=== PATIENT | female | born 1950 | race Caucasian/White ===

== ENCOUNTER → 2021-01-07 15:17 | Outpatient (CLI) | payer MEDICARE, OTHER, SELFPAY ==
[2021-01-07 15:44] LABS: COVID19 -Nasal RAPID Negative (Negative)
== END ==
PROVIDERS: PCP Internal Medicine; Visit Provider Obstetrics & Gynecology
DX: Z01.812 Encounter for preprocedural laboratory examination (principal); Z20.822 Contact with and (suspected) exposure to COVID-19
CPT/HCPCS: 87635

== ENCOUNTER 2021-01-08 07:11 | Day surgery (SDC) | payer MEDICARE, OTHER, SELFPAY ==
[2020-12-30 12:19] VITALS: BMI 47.2
[2021-01-08] VITALS (9 sets, daily range): BP systolic 109–139; BP diastolic 69–85; PULSE 16–95; RESP 16–18; TEMP 36.3–36.6; O2SAT 89–98; BMI 47.2
--- NOTE | 2021-01-08 | PATH_ITS ---
[facility] Accession Number: [id number] . 01 Material submitted: . PART A: endometrium - ENDOMETRIAL CURETTINGS PART B: endocervix - ENDOCERVICAL CURETTINGS . 01 Clinical history: . SDC . 02 Diagnosis: A. Endometrial Curettings: Avulsed portions of acutely inflamed squamous mucosa; negative for squamous dysplasia or malignancy. Portions of endometrium with features of cystic atrophy; negative for glandular hyperplasia, cytologic atypia, or malignancy. Some endometrial fragments demonstrate prominent vessels, suggestive of polyp, if clinical and imaging studies are concordant. . B. Endocervical Curettings: Inflamed portions of endocervical polyp; negative for glandular dysplasia or malignancy. V 01/12/2021 1522 Local . 02 Electronically signed: . Evie Presley MD, Pathologist NPI- [id number] . 01 Gross description: . Part A: ENDOMETRIAL CURETTINGS: Received in formalin are multiple fragment(s) of ellsworth, soft tissue measuring 1.5 x 1.0 x 0.2 cm in aggregate submitted entirely in 1 cassette(s) Part B: ENDOCERVICAL CURETTINGS: Received in formalin are minute fragment(s) of ellsworth, soft tissue measuring 1.0 x 0.5 x 0.2 cm in aggregate submitted entirely in 1 cassette(s) /QBJ 01/09/2021 0617 Local . 02 Pathologist provided ICD-10: N85.00, N84.1 . 02 CPT . 237931, 270458 Performed at: 01 [facility] [address], [place], [place] [id number] MD Yazan Gann MD Phone: [phone] Performed at: 02 [facility] [id number] [place] [id number] MD Chayo Anaya MD Phone: [phone]
[2021-01-08] MEDS: LACTATED RINGERS 1,000 ML 100 ML IV (07:46)
--- NOTE | 2021-01-08 08:14 | P.HP_ITS ---
History of Present Illness History of Present Illness Date Patient Seen: 01/08/21 Time Patient Seen: 08:15 Chief complaint: SDC Narrative: Patient is a 70-year-old 4 para 4 postmenopausal bleeding and an endocervical/endometrial polyp. She is here for a D&C hysteroscopy and polypectomy. Patient History Medical History (Updated 12/30/20 @ 12:48 by Millicent Carlson RN) Acquired hypothyroidism (~1994) Allergies (~1969) Asthma Cataract Cataracts, bilateral (~2013) Chicken pox Colon polyps (~2017) Essential hypertension Frequent UTI GERD (gastroesophageal reflux disease) (~2009) Headache Heavy menstrual period (~1999) Hemorrhoid (~2014) Hiatal hernia History of colon polyps Hypercholesterolemia Hypothyroid Insomnia Measles Obesity JOANIE on CPAP Peripheral neuropathy Pernicious anemia RLS (restless legs syndrome) Seasonal allergic conjunctivitis Seasonal allergies Sleep related leg cramps Vitamin B12 deficiency 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 Wheezing Surgical History (Updated 11/23/20 @ 21:34 by Treasure Levin) H/O carpal tunnel repair (~2009) History of section History of femoral hernia repair S/P tonsillectomy and adenoidectomy Status post right knee replacement [place] teeth extracted Family & Social History Social History: household members spouse Tobacco & Substance use: Smoking Status Never smoker alcohol intake never Substance Use Type does not use Meds Home Medications and Allergies Home Medications Medication Instructions Recorded Confirmed Type [LEG CRAMPS PM] 2 tab PO HS #0 08/18/16 06/20/19 History [RESTFULL LEGS] 2 tab SUBLINGUAL HS #0 08/18/16 06/20/19 History levothyroxine [Synthroid] 0.2 mg PO QDAY #0 08/18/16 01/08/21 History meloxicam [Mobic] 7.5 mg PO AMCC #0 08/18/16 01/08/21 History albuterol 90 mcg/actuation aerosol 90 mcg INHALATION PRN PRN 06/20/19 01/08/21 History inhaler ascorbic acid (vitamin C) 250 mg 250 mg PO DAILY 06/20/19 01/08/21 History tablet calcium carb-D3-mag [id number] 3 tab PO DAILY 06/20/19 11/18/20 History docusate sodium 100 mg capsule 100 mg PO PRN PRN 06/20/19 01/08/21 History ferrous sulfate 325 mg (65 mg 325 mg PO DAILY 06/20/19 01/08/21 History iron) tablet glucos sul [id number] 1 tab PO DAILY 06/20/19 11/18/20 History melatonin 5 mg capsule 5 mg PO DAILY cap 06/20/19 01/08/21 History pantoprazole 40 mg tablet,delayed 40 mg PO DAILY 06/20/19 01/08/21 History release oxycodone-acetaminophen 5 mg-325 1 tab PO BEDTIME tab 11/18/20 01/08/21 History mg tablet rosuvastatin 10 mg tablet 10 mg PO DAILY 11/18/20 01/08/21 History cholecalciferol (vitamin D3) 15 mcg PO BEDTIME 12/30/20 01/08/21 History [Vitamin D3] cyanocobalamin (vitamin B-12) 2,500 mcg PO DAILY 12/30/20 01/08/21 History diclofenac sodium 1 g TOPICAL SEEINSTR 12/30/20 12/30/20 History diphenhydramine HCl 50 mg PO BEDTIME 12/30/20 01/08/21 History fexofenadine 180 mg PO DAILY 12/30/20 01/08/21 History inulin [Fiber Gummies] 1 g PO DAILY 12/30/20 01/08/21 History Allergies Allergy/AdvReac Type Severity Reaction Status Date / Time gabapentin [GABAPENTIN] Allergy Mild FACIAL RASH Unverified 12/30/20 12:45 Exam Vital Signs (past 8 hours): - 01/08/21 07:47 Temperature 97.8 F Pulse Rate 95 H Respiratory Rate 16 Blood Pressure 139/79 Pulse Oximetry 98 Oxygen Delivery Method Room Air Oxygen Flow Rate 0 Narrative Exam Narrative: HEENT: No thyromegaly, no anterior cervical or supraclavicular lymphadenopathy. Lungs:Clear to auscultation bilaterally, no wheezes. Cardiovascular: Regular rate and rhythm, no murmurs, rubs, or gallops. Abdomen: Well-healed scars. No hepatosplenomegaly. No masses palpable. External genitalia: Normal Vagina: Normal Cervix: Normal Bimanual exam: 8 Week size uterus. Mobile. Assessment & Plan Assessment & Plan narrative: Assessment: 70-year-old 4 para 4 with postmenopausal bleeding, thickened endometrial lining, and an endocervical/endometrial polyp Plan: D&C hysteroscopy with polypectomy The risks, benefits, and alternatives to the procedure were explained to the patient. The risks including bleeding, infection, and uterine perforation. She understands these risks and agrees to proceed. A full par Q was held and consent form was signed. COVID-19 COVID-19 status: Negative Result date/Date tested (Pos, Neg/Pending): 01/07/21 Time Spent With Patient Time with patient: less than 15 minutes
--- NOTE | 2021-01-08 08:17 | PM.PREOP ---
Pre-operative Note COVID-19 COVID-19 status: Negative Result date/Date tested (Pos, Neg/Pending): 01/07/21 Interval Note History & Physical reviewed/Exam performed by Physician: Yes Changes to H&P: No H&P completed within 30 days and has changed as indicated here:: 01/08/21
--- NOTE | 2021-01-08 09:08 | P.OP_ITS ---
Operative Date/Time/Diagnoses Date of procedure: 01/08/21 Time of procedure: 09:08 Pre-op diagnosis: Postmenopausal bleeding Endometrial hyperplasia Endocervical versus endometrial polyp Post-op diagnosis: same Procedure & Clinicians Procedure: Procedures Operation Date: 01/08/21 08:15 <No data on this case meets the specified criteria> Indications: Postmenopausal bleeding Endometrial hyperplasia Endocervical versus endometrial polyps Surgeon: Sarah Joel Anesthesia Type: General (LMA) Operative Notes Findings: Eight week size anteverted uterus Small polyps in the endocervical canal Fallopian tube ostia not observed Closure Type: not applicable Specimen(s): endometrial curettings and other (Endocervical curetting) Estimated blood loss (mL): 10 Blood products transfused: none Procedure in detail: After informed consent was obtained, patient was taken to the operating room where she was placed in the dorsal supine position. After adequate LMA general anesthesia was achieved, she was placed in the dorsal lithotomy position, and prepped and draped in the usual sterile fashion. A time-out was performed. A bivalve speculum was placed into the vagina and the anterior lip of the cervix was grasped with a single-tooth tenaculum. The ce rvical os was sequentially dilated to the # 9 Hegar dilator. The hysteroscope passed easily into the endocervical cavity and was advanced into the endometrium. There were some clots. An attempt was made to flush them with some pressure on the fluid. Never was really able to see well into the endometrium. The fallopian tube ostia were not observed. The hysteroscope was removed. Polyp forceps were used and sharp curettage to obtain tissue from the endometrium. Sharp curettage and polyp forceps were used in the Endo cervical canal to remove the polyps. The instruments were removed from the uterus and cervix. The single-tooth tenaculum was removed from the anterior lip of the cervix. The bivalve speculum was removed from the vagina. Sponge, lap, and instrument counts were correct x2. The patient tolerated the procedure well, and was taken to PACU in stable condition. Complications: none Post-operative Condition: stable Disposition: PACU Plan for aftercare: Home after recovery
--- NOTE | 2021-01-08 10:27 | SUR.OPER ---
Lithotomy on padded OR bed, head on pillow, arms secured on padded arm boards at <90 degrees abduction. Legs secured in padded yellow fins stirrups.
== END 2021-01-08 10:16 | disposition home or self-care (01) ==
PROVIDERS: PCP Internal Medicine; Referring Provider Internal Medicine; Visit Provider Obstetrics & Gynecology
PROC: 0UDB8ZZ Extraction of Endometrium, Via Natural or Artificial Opening Endoscopic (ICD-10-PCS; CPT 58558; principal; 2021-01-08 08:15)
DX: N84.1 Polyp of cervix uteri (principal); N95.0 Postmenopausal bleeding; N85.00 Endometrial hyperplasia, unspecified; G47.33 Obstructive sleep apnea (adult) (pediatric); E03.9 Hypothyroidism, unspecified; J45.909 Unspecified asthma, uncomplicated; I10 Essential (primary) hypertension; K21.9 Gastro-esophageal reflux disease without esophagitis; E78.00 Pure hypercholesterolemia, unspecified
CPT/HCPCS: 58558; J1100; J1885; J2250; J2405; J2704; J3010

== ENCOUNTER → 2021-01-16 09:01 | Outpatient (CLI) | payer MEDICARE, OTHER, SELFPAY ==
--- NOTE | 2021-01-16 09:03 | DI.US.S_ITS ---
PROCEDURE: US PELVIC COMPLETE INDICATIONS: Post Op bleeding and elevated temp TECHNIQUE: Real-time scanning was performed of the pelvic organs, with image documentation. Additional endovaginal scanning was necessary due to incomplete visualization of the adnexal and endometrial structures by transabdominal scanning. COMPARISON: None. FINDINGS: Uterus: Uterus is enlarged in size at 10.4 x 6.5 x 6.7 cm. The endometrium measures 33 mm in combined thickness. Endometrial contents demonstrate no definite vascularity. No definite uterine hyperemia. Incidental left anterior subserosal uterine fibroid measuring 2.7 x 1.9 x 2.1 cm. Ovaries: Ovaries not well visualized. Other: No pathologic free abdominal or pelvic fluid. IMPRESSION: Enlarged heterogeneous appearance of the uterus, with prominent endometrial contents. Findings could represent large amount of blood products although cannot exclude endometritis in the appropriate clinical setting. Findings provided to Dr. Joel by the lab support technician at the time of the study, the patient was sent to Dr. Joel's office for further workup and treatment. Dictated by: Anshul Nicole M.D. on 01/16/2021 at 10:48 Approved by: Anshul Nicole M.D. on 01/16/2021 at 10:51
[2021-01-16 10:05] LABS: Add Manual Diff / Slide Review NO; Basophils Absolute Auto 0 /uL (0-100); Basophils Percent Auto 0.7 % (0-2); Eosinophils Absolute Auto 200 /uL (0-450); Eosinophils Percent Auto 2.7 % (2-4); Hemoglobin 13.5 g/dL (12.0-16.0); Lymphocytes Absolute Auto 1300 /uL (1100-4500); Lymphocytes Percent Auto 21.8 % (25-40); Mean Corpuscular HGB Conc 34.7 % (30-36); Mean Corpuscular Hemoglobin 30.5 PG (26-34); Mean Corpuscular Volume 87.9 fL (80-100); Monocytes Absolute Auto 800 /uL (0-900); Monocytes Percent Auto 13.7 % (3-14); Neutrophils Absolute Auto 3700 /uL (1500-7000); Neutrophils Percent Auto 61.1 % (50-75); Platelet Count 227 X10^3/uL (150-400); Red Blood Cell Count 4.43 X10^6/uL (4.0-5.2); Red Cell Distribution Width 12.8 % (11.6-14.8)
[2021-01-16 11:06] LABS: Ferritin 605 ng/mL (11-264)
== END ==
PROVIDERS: Family Medicine Sleep Medicine; PCP Internal Medicine; Referring Provider Obstetrics & Gynecology; Visit Provider Obstetrics & Gynecology
DX: N99.820 Postprocedural hemorrhage of a genitourinary system organ or structure following a genitourinary system procedure; R50.9 Fever, unspecified; G25.81 Restless legs syndrome
CPT/HCPCS: 36415; 76830; 76856; 82728; 85025

== ENCOUNTER → 2021-03-26 09:25 | Outpatient (CLI) | payer MEDICARE, OTHER, SELFPAY ==
--- NOTE | 2021-03-26 09:27 | DI.US.S_ITS ---
PROCEDURE: US PELVIC COMPLETE INDICATIONS: EVAL SPOTTING S/P D C. TECHNIQUE: Real-time scanning was performed of the pelvic organs, with image documentation. Additional endovaginal scanning was necessary due to incomplete visualization of the adnexal and endometrial structures by transabdominal scanning. COMPARISON: None. FINDINGS: Uterus: The uterine body measures 7.2 x 8.1 x 10.5 centimeters. There is a left anterior subserosal uterine fibroid which is partially visualized. This measures at least 2.0 x 2.1 centimeters. The 3rd orthogonal measurement could not be obtained (previously 2.7 centimeters). This has likely slightly increased in size. No additional uterine mass identified. The endometrial stripe complex is markedly thickened measuring approximately 3.7 centimeters. There is and irregular and hypervascular appearance of the endometrium. Ovaries: Neither ovary is identified. Other: No pathologic free abdominal or pelvic fluid. IMPRESSION: Technically limited exam with nonvisualization of both ovaries. Enlarged uterus containing a left anterior subserosal fibroid which has probably slightly increased in size although this is not entirely visualized on the current study. Thickened and irregular appearing endometrium. Correlate with menopausal status and any recent procedures or hormone replacement. Dictated by: Juma Coburn M.D. on 03/31/2021 at 16:57 Approved by: Juma Coburn M.D. on 03/31/2021 at 16:59
== END ==
PROVIDERS: PCP Internal Medicine; Referring Provider Obstetrics & Gynecology; Visit Provider Obstetrics & Gynecology
DX: N95.0 Postmenopausal bleeding (principal); D25.2 Subserosal leiomyoma of uterus; R93.89 Abnormal findings on diagnostic imaging of other specified body structures; N85.2 Hypertrophy of uterus; Z98.890 Other specified postprocedural states
CPT/HCPCS: 76830; 76856; 99213

== ENCOUNTER → 2021-05-12 15:17 | Outpatient (CLI) | payer MEDICARE, OTHER, SELFPAY ==
[2021-05-12 16:14] LABS: COVID19 -Nasal RAPID Negative (Negative)
== END ==
PROVIDERS: PCP Internal Medicine; Visit Provider Obstetrics & Gynecology
DX: Z01.812 Encounter for preprocedural laboratory examination (principal); Z20.822 Contact with and (suspected) exposure to COVID-19
CPT/HCPCS: 87635

== ENCOUNTER 2021-05-14 08:42 | Day surgery (SDC) | payer MEDICARE, OTHER, SELFPAY ==
[2021-05-07 15:06] VITALS: BMI 45.8
[2021-05-14] VITALS (14 sets, daily range): BP systolic 114–152; BP diastolic 69–89; PULSE 57–107; RESP 14–20; TEMP 36.3–37; O2SAT 92–100; BMI 45.8
--- NOTE | 2021-05-14 | PATH_ITS ---
[facility] Accession Number: [id number] . 01 Material submitted: . uterus - UTERUS, BILATERAL FALLOPIAN TUBES AND BILATERAL OVARIES . 02 Diagnosis: Uterus, Bilateral Fallopian Tubes and Bilateral Ovaries, Laparoscopic Supracervical Hysterctomy with Bilateral Salpingo-oophorectomy (Morcellated Specimen, Weight 261 grams): . 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 Please see Cancer Case Summary. . . CANCER CASE SUMMARY . Procedure: Laparoscopic supracervical hysterectomy with bilateral salingo-oophorectomy. Hysterectomy type: Laparoscopic. Specimen integrity: Disrupted / morcellated. . Tumor Tumor site: Favor endometrium (disrupted specimen). Tumor size: At least 6.5 cm. Greatest dimension in centimeters: 6.5 cm. Histologic type: Serous carcinoma; (pattern of high grade endometrioid carcinoma constitutes approximately 20% of apparent tumor). Histologic grade: FIGO grade 3. Myometrial invasion: Present. Depth of myometrial invasion: Cannot be determined (disrupted specimen). Myometrial thickness: At least 1.5 cm. Precentage of myometrial invasion: Cannot be determined (disrupted specimen). Adenomyosis: Present, uninvolved by carcinoma. Uterine serosa involvement: Cannot be determined; where serosa is identified, no tumor involvement is seen. (disrupted specimen). Lower uterine segment involvement: Cannot be determined (disrupted specimen). Cervical stroma involvement: Cannot be determined (supracervical hysterectomy specimen). . Other tissue/organ involvement: Not identified (right and left ovaries, right and left fallopian tubes). . Peritoneal / ascitic fluid: Unknown. . Lymphovascular invasion: Equivocal (slide A2 with a focus equivocal for lymphovascular involvement. . . Margins Margin status: Cannot be determined. Distance from invasive carcinoma to closest margin: Cannot be determined. Margins involved by invasive carcinoma: Cannot be determined. . Regional lymph nodes Regional lymph node status: No regional lymph nodes submitted or found / not applicable. . Distant metastasis Distant sites involved: Cannot be determined (no additional tissue submitted for evaluation of distant site involvement. . . Pathologic stage classification (pTNM, AJCC 8th Edition): pT not assigned (cannot be determined based on available pathology information). pN not assigned (no nodes submitted or found). . Additional findings: Adenomyosis, atypical hyperplasia / endometrial intraepithelial neoplasia. . MMR studies pending; results will be reported as an addendum. [facility] 05/20/2021 1527 Local . 02 Comment: As part of routine quality improvement analyst, parts of this case were also reviewed by Dr. Anaya, who agrees with the interpretation. . This patient's previous endometrial biopsies were reviewed ([id number], 11/18/20; and [id number], 01/08/21) by Drs. Anaya and Porfirio and no tumor is identified upon review. . 02 Electronically signed: . Evie Presley MD, Pathologist NPI- [id number] . 01 Gross description: . The specimen is received in formalin, labeled uterus, bilateral fallopian tubes and bilateral ovaries and consists of a morcellated uterus weighing 261 grams and measuring 15.0 x 15.0 x 6.4 cm in aggregate. The endometrium is ellsworth-pink and ragged measuring 0.2 cm in thickness. The myometrium is ellsworth-pink and trabeculated with two ellsworth-white whorled leiomyoma measuring 0.6 x 0.5 x 0.5 cm and 1.5 x 1.4 x 1.0 cm, with no areas of hemorrhage, necrosis or cystic degeneration. Also received is a 2.0 x 1.1 x 0.8 cm ovary with a ellsworth smooth external surface. Sectioning reveals multiple smooth walled serous-filled cysts ranging from 0.1-0.2 cm with no papillary excrescences. The attached fallopian tube measures 4.5 cm in length by 1.0 cm in diameter and displays a ellsworth-pink smooth serosa with a 0.2 x 0.2 x 0.2 cm paratubal cyst. Sectioning reveals a ellsworth-pink mucosa and a stellate lumen measuring 0.5 cm in diameter. The other ovary measures 2.1 x 1.4 x 1.0 cm and displays a ellsworth, smooth and focally disrupted external surface. Sectioning reveals ellsworth-pink cut surfaces. The other detached fallopian tube measures 5.5 cm in length by 1.0 cm in diameter and display a ellsworth-pink to pink-purple smooth mucosa. Sectioning reveals a ellsworth-pink mucosa and a stellate lumen measuring 0.6 cm in diameter. Also received are multiple irregular ellsworth, focally yellow and focally necrotic fragments of soft tissue measuring 6.5 x 6.0 x 3.0 cm in aggregate. A cervix is not identified. Glass Smoother sections are submitted. . A1-A5: Glass Smoother uterus. A6: Ovary with attached fallopian tube, bisected and entirely submitted. A7: Attached fallopian tube with central cross sections and bisected fimbria. A8: Other ovary, bisected and entirely submitted. A9: Other fallopian tube, central cross-sections and bisected fimbria. A10-A12: Glass Smoother additional soft tissue fragments. A13: Candidate lower uterine segment. A14-A16: Remainder of fallopian tubes. A17-A25: Serosa, entirely submitted. A26-A27: Additional circulation sales representative sections of soft tissue/mass. ([id number]) /MRV 05/20/2021 1443 Local . 02 Microscopic: . An immunohistochemistry study is performed to evaluate the cells of interest. The control stains show appropriate reactivity. . RESULTS: Block A2: PAX8: Positive. WT1: Negative. P53: Diffusely, strongly positive / over-expressed. P16: Diffusely, strongly positive. MARGO: Variably positive. . The neoplastic cells are variably positive for MARGO, strongly positive for PAX8 and p16 and demonstrate over-expression of p53. They are negative for WT-1. These results favor an interpretation of endometrial adenocarcinoma with serous differentiation and mitigate against an ovarian serous tumor origin. . . CAP ENDOMETIRAL BIOMARKER REPORTING TEMPLATE: . Estrogen Receptor (ER) Status: Positive (approximately 30% of tumor nuclei). Intensity: Weak to focally moderate. Primary antibody: SP1 Progesterone Receptor (PgR) Status: Positive (approximately 30% of tumor nuclei). Intensity: Weak to focally moderate. Primary antibody: 1E2 HER2 (by immunohistochemistry): Negative (score 0). Primary antibody: 4B5 . Cold Ischemia and Fixation Times: Meets requirements in the latest version of the ASCO/CAP guidelines. Testing performed on Block Number: A2. . TECHNICAL NOTE: The scoring criteria for breast biomarkers by immunohistochemistry is based on the current ASCO/CAP guidelines (Marcus et al, Arch Pathol Lab Med 2010: 134(6): 907-922 / Nayla Fan, Arch Pathol Lab Med 2014: 138(2):241-256). Deparaffinized sections of formalin fixed tissue (along with appropriate positive controls) are incubated with the above antibody(s). Using the automated [place] stainer, tissue is incubated with the designated antibody* which is then localized by a non-biotin, dual polymer detection system. The external controls are reviewed for appropriate reactivity and found to be adequate. Results on the target cell population are indicated above. These tests have not been validated on decalcified tissue. . * This test was developed and its performance characteristics determined by [employer]. It has not been cleared or approved by the U.S. Food and Drug Administration. The FDA has determined that such clearance or approval is not necessary. This test is used for clinical purposes. It should not be regarded as investigational or for research. . 02 Pathologist provided ICD-10: C54.1 . 02 CPT . 360175, X81102, K07187, 476726, 857715, 771894 Performed at: 01 [facility] [address] [place] [id number] MD Yazan Gann MD Phone: [phone] Performed at: 02 [facility] [id number] [place] [id number] MD Chayo Anaya MD Phone: [phone]
--- NOTE | 2021-05-14 06:59 | PM.PREOP ---
Pre-operative Note COVID-19 COVID-19 status: Negative Result date/Date tested (Pos, Neg/Pending): 05/12/21 Interval Note History & Physical reviewed/Exam performed by Physician: Yes Changes to H&P: No H&P completed within 30 days and has changed as indicated here:: 05/12/21
[2021-05-14] MEDS: LACTATED RINGERS 1,000 ML 42 ML IV ×2 (09:00→11:04)
[2021-05-14] MEDS: ALBUTEROL 2.5 MG/3 ML NEB (ADULT) INH (09:36)
[2021-05-14] MEDS: CEFAZOLIN 1 GM VIAL 3 GM IV (09:50)
[2021-05-14] MEDS: BUPIVACAINE 0.25% W/ EPI 30 ML VIAL INJ (10:11)
[2021-05-14] MEDS: ROPIVACAINE 0.2% PF 2 MG/ML 10ML AMP 20 ML INJ (10:13)
--- NOTE | 2021-05-14 10:18 | SUR.OPER ---
Lithotomy on padded OR bed. [place] Pad Positioner under torso. Head on pillow, arms padded and tucked at sides. Legs secured in padded yellow fins stirrups. additional padded arm board attachment placed under left tucked arm.
--- NOTE | 2021-05-14 11:39 | PM.GYNOP.1 ---
Operative Date/Time/Diagnoses Date of procedure: 05/14/21 Time of procedure: 11:39 Pre-op diagnosis: Postmenopausal bleeding Negative D&C Post-op diagnosis: same Procedure & Clinicians Procedure: Procedures Operation Date: 05/14/21 09:45 Actual Procedure Side Surgeon p Laparoscopic Supracervical Hysterectomy w. bilateral salpingo-oophorectomy Sarah Joel MD Indications: Persistent Postmenopausal bleeding Negative D&C Fibroid uterus Surgeon: Sarah Joel Narrow Fabric Calenderer: Quinten Sterling Anesthesia Type: General and Local Operative Notes Findings: 10 week size, wide, uterus Normal tubes and ovaries Normal liver Appendix not visualized Gallbladder not visualized Closure Type: primary Specimen(s): left tube & ovary, right tube & ovary and uterus Applied: catheter (To continuous drainage) Estimated blood loss (mL): 50 Blood products transfused: none Procedure in detail: The patient was taken to the operating room where she was placed in the dorsal supine position. After adequate general endotracheal anesthesia was achieved, she was placed in the dorsal lithotomy position, and prepped and draped in the usual sterile fashion. A timeout was performed. A bivalve speculum was placed into the vagina and the anterior lip of the cervix grasped with a single-tooth tenaculum. The cervical os was sequentially dilated until the ZUMI uterine manipulator could pass easily into the endometrial cavity. The single-tooth tenaculum was removed from the anterior lip of the cervix, and the bivalve speculum was removed from the vagina. Attention was then turned to the abdomen where 6 mL of half percent Marcaine with epinephrine were injected in the umbilical fold. A 5 mm incision was made. The veress needle was placed into the peritoneal cavity, and its placement confirmed by aspiration and drop test. The veress needle was removed. A 5 mm trocar was placed without difficulty. 2 other incisions were made midway between the pubic symphysis and umbilicus after 5 mL of half percent Marcaine with epinephrine were injected. These were 5 mm incisions. Two, 5 mm trochars were placed under direct visualization. The right tube and ovary were grasped with an atraumatic grasper. Using the plasma kinetic with settings of 40 W the mesosalpinx was cauterized and cut all the way down to the cornua of the uterus. The cornua of the uterus was then grasped with an atraumatic grasper. The utero-ovarian ligaments were cauterized and cut. The round ligament and broad ligament were cauterized and cut with plasma kinetic. Hemostasis was achieved. The bladder flap was created using the plasma kinetic with cautery and cut detention across. The uterine arteries on the right side were extensively cauterized with plasma kinetic. All of this was repeated on the left side. The remainder of the bladder flap was created using the plasma kinetic, and the bladder taken down off the lower uterine segment and cervix. Using the Linaloop, the cervix was amputated from the uterus 2 cm above the uterosacral ligaments, after the ZUMI uterine manipulator was removed from the uterus and a moistened sponge stick was placed in the vagina. There was a small amount of bleeding noted from the posterior edge of the cervix, and this was cauterized for hemostasis. The endocervical canal was extensively cauterized with the PlasmaKinetic. 6 mL of half percent Marcaine with epinephrine were injected above the pubic symphysis. A 12mm incision was made. A 12 mm trocar was placed under direct visualization. An endobag was placed through the 12 mm trocar and the uterus, tubes, and ovaries were placed into the bag. The edges of the endobag were brought up through the skin after the trocar was removed. An Campbell was placed into the endobag. The uterus was morcellated in approximately 12 pieces. The tubes and ovaries were also removed from the Endobag. The Endobag with the Campbell were removed from the peritoneal cavity. The pelvis was copiously irrigated with warm normal saline. No bleeding was noted. 20 mL of 0.2% ropivacaine were placed over the pelvic pedicles. The instruments were removed from the abdomen. The CO2 was allowed to escape. The suprapubic incision was closed on the fascia with 0 Vicryl. All of the incisions were closed with 4-0 Biosyn in a subcuticular fashion. Steri strips, 2x2's and op sites were placed over the incisions. The moistened sponge stick was removed from the vagina. Sponge, lap, and instrument counts were correct x 2. The patient tolerated the procedure well, was taken to PACU in stable condition. Complications: none Post-operative Condition: stable Disposition: PACU Plan for aftercare: To acute care after recovery
[2021-05-14] MEDS: fentaNYL 100 MCG/2 ML INJ IV ×2 (12:00→12:07)
[2021-05-14] MEDS: OXYCODONE IR 5 MG TABLET PO ×2 (12:02→21:47)
[2021-05-14] MEDS: ONDANSETRON 4 MG/2 ML INJ IV (12:06)
[2021-05-14] MEDS: METOCLOPRAMIDE 10 MG/2 ML INJ IV (12:50)
[2021-05-14] MEDS: KETOROLAC 30 MG/ML VIAL IV ×2 (12:51→18:59)
[2021-05-14] MEDS: LACTATED RINGERS 1,000 ML 100 ML IV (13:00)
--- NOTE | 2021-05-14 14:28 | PC.NURSE ---
Postop Note Arrived to room 225 at 1240 from PACU. Drowsy but oriented x3 and awakens to voice promptly. Reports pain 3/10 and received toradol scheduled. Mild nausea, administered reglan per emar. Requested to sleep and was put on home CPAP. Williamson catheter in place and draining clear yellow urine. Dressings x4 to abdomen C/D/I. Call light within reach, using appropriately to make needs known. Oriented to room and to call light/bed/tv controls.
[2021-05-14] MEDS: DOCUSATE 100 MG CAPSULE 200 MG PO (21:47)
--- NOTE | 2021-05-14 22:01 | PC.NURSE ---
Vandana Shift Note: Pt with Aleven dressing x 3 lower abdomen and 1 Aleven dressing at umbilicus. Remained c/d/i. Minimal sanguinous smear onto indira pad. Changed only once during shift. Williamson with adequate straw colored output. Pain was well controlled. Toradol, Oxycodone and Tylenol staggered for pain control. Denies nausea. No issues with eating/drinking dinner. Up to chair for couple hours. Ambulated around room with standby assist. SCD's intact when in bed. Noted blood pressure heart rate elevated. Will continue to monitor. Using CPAP for sleep. No BM this shift.
[2021-05-15] MEDS: KETOROLAC 30 MG/ML VIAL IV ×2 (00:01→06:06)
[2021-05-15] MEDS: LACTATED RINGERS 1,000 ML 100 ML IV (00:15)
[2021-05-15] MEDS: OXYCODONE IR 5 MG TABLET PO ×2 (03:52→11:05)
[2021-05-15 04:02] VITALS: BP 130/67; PULSE 93; RESP 18; TEMP 36.6; O2SAT 94
[2021-05-15 05:12] LABS: Add Manual Diff / Slide Review NO; Basophils Absolute Auto 0 /uL (0-100); Basophils Percent Auto 0.4 % (0-2); Eosinophils Absolute Auto 0 /uL (0-450); Eosinophils Percent Auto 0.1 % (2-4); Hematocrit 36.1 % (36-46); Lymphocytes Absolute Auto 1200 /uL (1100-4500); Lymphocytes Percent Auto 11.4 % (25-40); Mean Corpuscular HGB Conc 33.2 % (30-36); Mean Corpuscular Hemoglobin 29.2 PG (26-34); Monocytes Absolute Auto 800 /uL (0-900); Monocytes Percent Auto 7.2 % (3-14); Neutrophils Absolute Auto 8500 /uL (1500-7000); Neutrophils Percent Auto 80.9 % (50-75); Platelet Count 216 X10^3/uL (150-400); Red Cell Distribution Width 13.3 % (11.6-14.8); White Blood Cell Count 10.5 X10^3/uL (4.5-11.0)
[2021-05-15] MEDS: LEVOTHYROXINE 100 MCG TABLET 200 MCG PO (06:07)
[2021-05-15 07:34] VITALS: BP 117/60; PULSE 76; RESP 16; TEMP 36.7; O2SAT 95
[2021-05-15] MEDS: ATORVASTATIN 20 MG TABLET PO (08:37)
[2021-05-15] MEDS: DOCUSATE 100 MG CAPSULE 200 MG PO (08:37)
[2021-05-15] MEDS: ACETAMINOPHEN 325 MG TABLET 650 MG PO (08:37)
[2021-05-15] MEDS: PANTOPRAZOLE DR 40 MG TABLET PO (08:37)
[2021-05-15] MEDS: ALBUTEROL 2.5 MG/3 ML NEB (ADULT) INH (08:40)
--- NOTE | 2021-05-15 08:57 | CM.DANOTE ---
Addendum entered by Vira Islas LPN 05/15/21 12:37: Pt voided successfully and left for home in company of her . Original Note: Discharge Planning/Care Management DCP: assessment: case received, EMR reviewed and d/c to home order noted. Checked in with SOFI Carney who noted that pt would be going home, likely this morning, after she voids. Pt is a 70 year old female who admitted yesterday for a scheduled gynecological procedure. Surgeon: Dr. Avani Joel Payer: Medicare and [employer]. Pt lives in [facility] with her spouse Colt. P: home today after successful void. Will follow prn. CM Discharge Assessment Start: 05/15/21 08:57 Freq: Status: Active Protocol: Document 05/15/21 08:57 ITV (Rec: 05/15/21 08:57 ITV [id number]) Discharge Planning Assessment Advance Directives? Yes Advance Directives on File No History Provided By Patient,Medical Record Prior Living Arrangements House Household Members spouse Is patient alert and oriented? Yes Review Status In Process Pre-Anesthesia Assessment Start: 05/07/21 15:06 Freq: Status: Active Protocol: Document 05/07/21 15:06 CAB (Rec: 05/07/21 15:13 CAB [id number]) Pre-Anesthesia Assessment Patient Information Reviewed Via Chart Review Comment COVID screen @ 05/12/21 Primary Care Provider Hemanth Hurt Seen Specialist in Last 12 Months Yes Specialist Seen Insurance Producer,Sleep specialist Primary Language Cook Islander Preferred Language Cook Islander Vascular Technologist Required No Height 162.56 cm Weight 121.109 kg Body Mass Index (BMI) 45.8 Barriers to Learning None Hx Anesthesia Reactions No Hx Family Anesthesia Reaction No Hx Malignant Hyperthermia No Hx Blood Transfusion Reaction No Anesthesia Review Requested No Environmental Health And Safety Intern No alcohol intake never Smoking Status Never smoker Substance Use Type does not use Patient is completely paralyzed or No completely immobile Hx Sleep Apnea Yes CPAP/BIPAP use prescribed and used routinely Currently Taking a Beta Geraldine No Can You Climb a Flight of Stairs Without Yes SOB Hx Pacemaker/ICD No Pacemaker Rep Required? No Cardiac Clearance Received Not Applicable Urinary Catheter Present No Hx Urinary Self Catheterization No Diabetes No Patient No Lactating No Presence of External or Internal Medical Yes: R TKA, BL CATARACTS Devices Marital Status Lives With spouse Patient Discharge Plan Description Return Home Advance Directives? Yes
--- NOTE | 2021-05-15 09:47 | PC.NURSE ---
Addendum entered by Angelika Perez R.N. 05/15/21 12:23: Patient's present for discharge. Patient wheeled out via wheelchair with aide assist. Denied further questions or concerns at that time. Original Note: Patient A/O x3, ambulating in room independently, endorses pain 1/10 with movement, PRN Tylenol administered. Abdominal dressings are CDI x 3. Patient voided 400 post Williamson removal. Abdomen soft, reports she is now passing flatus. IV removed for pending discharge. Patient tolerated. Patient given discharge instructions regarding f/u care, wound care, s/s of infection, medication and activity. Patient verbalized understanding. Denies further needs at this time.
== END 2021-05-15 12:24 | disposition home or self-care (01) ==
LOC: OR 09:16 → AC 09:16
PROVIDERS: PCP Internal Medicine; Referring Provider Obstetrics & Gynecology; Visit Provider Obstetrics & Gynecology
PROC: 0UT94ZL Resection of Uterus, Supracervical, Percutaneous Endoscopic Approach (ICD-10-PCS; CPT 58544; principal; 2021-05-14 09:45)
DX: C54.1 Malignant neoplasm of endometrium (principal); N80.0 Endometriosis of uterus; D25.1 Intramural leiomyoma of uterus; G47.33 Obstructive sleep apnea (adult) (pediatric); E66.9 Obesity, unspecified; K21.9 Gastro-esophageal reflux disease without esophagitis; J45.909 Unspecified asthma, uncomplicated; D64.9 Anemia, unspecified
CPT/HCPCS: 58544; 36415; 85025; J0690; J1885; J2405; J2704; J2765; J2795; J3010; J7613

== ENCOUNTER → 2021-05-26 13:55 | Outpatient (CLI) | payer MEDICARE, OTHER, SELFPAY ==
[2021-05-14 13:26] VITALS: BMI 45.8
[2021-05-26 17:24] LABS: COVID19 -Nasal RAPID Negative (Negative)
== END ==
PROVIDERS: PCP Internal Medicine; Visit Provider Physician Assistant
DX: Z01.812 Encounter for preprocedural laboratory examination (principal); Z20.822 Contact with and (suspected) exposure to COVID-19
CPT/HCPCS: 87635; C9803

== ENCOUNTER 2021-05-27 07:38 | Day surgery (SDC) | payer MEDICARE, OTHER, SELFPAY ==
[2021-05-14 13:26] VITALS: BMI 45.8
[2021-05-27] VITALS (7 sets, daily range): BP systolic 98–129; BP diastolic 61–81; PULSE 75–84; RESP 14–19; TEMP 36.4–37.2; O2SAT 93–97; BMI 46.0
--- NOTE | 2021-05-27 | PATH_ITS ---
[facility] Accession Number: [id number] . 01 Material submitted: . PART A: small bowel - SMALL BOWEL BIOPSY PART B: gastrointestinal site - GASTRIC . 01 Clinical history: . SDC A: R/O CELIAC B: R/O H.PYLORI . 02 Diagnosis: A. Small Bowel, Biopsy: Duodenal mucosa with no diagnostic abnormality. Negative for active inflammation, features of sprue, dysplasia, or malignancy. . B. Stomach, Biopsy: Antral mucosa with mild chronic gastritis. Negative for Helicobacter by immunohistochemistry. Negative for intestinal metaplasia. Negative for dysplasia and malignancy. . MRV 06/02/2021 1325 Local . 02 Electronically signed: . Chayo Anaya MD, Pathologist NPI- [id number] . 01 Gross description: . Part A: SMALL BOWEL BIOPSY: Received in formalin are multiple fragment(s) of ellsworth, soft tissue measuring 0.5 x 0.3 x 0.1 cm in aggregate submitted entirely in 1 cassette(s) Part B: GASTRIC: Received in formalin is 1 fragment(s) of ellsworth, soft tissue measuring 0.4 x 0.3 x 0.2 cm submitted entirely in 1 cassette(s) /LASHELL 05/28/2021 0451 Local . 02 Microscopic: . B. An immunohistochemical stain was performed to evaluate for Helicobacter organisms and is negative. The control stain showed appropriate reactivity. . * This test was developed and its performance characteristics determined by [employer]. It has not been cleared or approved by the U.S. Food and Drug Administration. The FDA has determined that such clearance or approval is not necessary. This test is used for clinical purposes. It should not be regarded as investigational or for research. . 02 Pathologist provided ICD-10: R13.10 02 CPT . 758783, 038556, [id number] Performed at: 01 [facility] [address] [id number] MD Yazan Gann MD Phone: [phone] Performed at: [facility] [address] [place], [place] [id number] MD Chayo Anaya MD Phone: [phone]
[2021-05-27] MEDS: SODIUM CHLORIDE 0.9% 1,000 ML 84 ML IV (08:29)
--- NOTE | 2021-05-27 08:51 | PM.HP.1 ---
History of Present Illness History of Present Illness Date Patient Seen: 05/27/21 Chief complaint: SDC Narrative: Multiple abdominal complaints including pain and bloating Patient History Medical History Acquired hypothyroidism (~1994) Allergies (~1969) Asthma Cataract Cataracts, bilateral (~2013) Chicken pox Colon polyps (~2017) Essential hypertension Frequent UTI GERD (gastroesophageal reflux disease) (~2009) Headache Heavy menstrual period (~1999) Hemorrhoid (~2014) Hiatal hernia History of colon polyps Hypercholesterolemia Hypothyroid Insomnia Measles Obesity JOANIE on CPAP Peripheral neuropathy Pernicious anemia RLS (restless legs syndrome) Seasonal allergic conjunctivitis Seasonal allergies Sleep related leg cramps Vitamin B12 deficiency 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 Wheezing Surgical History (Updated 05/07/21 @ 15:13 by Lolita Mejia RN) H/O carpal tunnel repair (~2009) History of section History of femoral hernia repair History of hysteroscopy (01/08/21) S/P tonsillectomy and adenoidectomy Status post right knee replacement [place] teeth extracted Family & Social History Social History: household members spouse Tobacco & Substance use: Smoking Status Never smoker alcohol intake never Substance Use Type does not use Meds Home Medications and Allergies Home Medications Medication Instructions Recorded Confirmed Type [LEG CRAMPS PM] 2 tab PO HS #0 08/18/16 05/14/21 History [RESTFULL LEGS] 2 tab SUBLINGUAL HS #0 08/18/16 05/14/21 History levothyroxine 200 mcg tablet 0.2 mg PO QDAY #0 08/18/16 05/12/21 History (Synthroid) meloxicam 7.5 mg tablet (Mobic) 7.5 mg PO AMCC #0 08/18/16 05/12/21 History albuterol 90 mcg/actuation aerosol 90 mcg INHALATION PRN PRN 06/20/19 05/27/21 History inhaler ascorbic acid (vitamin C) 250 mg 250 mg PO DAILY 06/20/19 05/12/21 History tablet calcium carb-D3-mag [id number]-[id number] 3 tab PO DAILY 06/20/19 05/14/21 History docusate sodium 100 mg capsule 100 mg PO PRN PRN 06/20/19 05/12/21 History (Dulcolax Stool Softener (docusate)) ferrous sulfate 325 mg (65 mg 325 mg PO DAILY 06/20/19 05/12/21 History iron) tablet glucos sul [id number]-C-Mn 1 tab PO DAILY 06/20/19 05/14/21 History [Glucosamine Chondroitin] melatonin 5 mg capsule 5 mg PO DAILY cap 06/20/19 05/12/21 History pantoprazole 40 mg tablet,delayed 40 mg PO DAILY 06/20/19 05/12/21 History release rosuvastatin 10 mg tablet (Crestor) 10 mg PO DAILY 11/18/20 05/12/21 History cholecalciferol (vitamin D3) 10 15 mcg PO BEDTIME 12/30/20 05/12/21 History mcg (400 unit) tablet (Vitamin D3) cyanocobalamin (vitamin B-12) 2,500 mcg PO DAILY 12/30/20 05/12/21 History 2,500 mcg tablet diclofenac sodium 1 % topical gel 1 g TOPICAL SEEINSTR 12/30/20 05/12/21 History diphenhydramine HCl 50 mg tablet 50 mg PO BEDTIME 12/30/20 05/12/21 History fexofenadine 180 mg tablet 180 mg PO DAILY #0 12/30/20 05/12/21 History inulin 2 gram chewable tablet 1 g PO DAILY 12/30/20 05/12/21 History (Fiber Gummies) albuterol sulfate 90 mcg/actuation See Rx Instructions .ROUTE .COMPLEX 05/14/21 05/14/21 History aerosol inhaler oxycodone 5 mg tablet 5 mg PO Q4H PRN #20 tab 05/15/21 Rx Allergies Allergy/AdvReac Type Severity Reaction Status Date / Time gabapentin [GABAPENTIN] Allergy Mild FACIAL RASH Verified 05/27/21 08:13 Exam Vital Signs (past 8 hours): - 05/27/21 08:10 Temperature 99 F Pulse Rate 84 Respiratory Rate 16 Blood Pressure 129/81 Pulse Oximetry 97 Oxygen Delivery Method Room Air Narrative Exam Narrative: Oropharynx free of lesions Chest clear to auscultation percussion Cardiac exam reveals no clear S3 or murmur Assessment & Plan Assessment & Plan narrative: Multiple abdominal complaints including pain and bloating. Rule out Helicobacter rule out celiac disease rule out peptic disease. Risks, benefits, alternatives have been explained.
--- NOTE | 2021-05-27 08:52 | PM.OP.ENDO ---
Operative Date/Time/Diagnoses Date of procedure: 05/27/21 Pre-op diagnosis: See indication and findings Procedure & Clinicians Study performed: EGD Indications: Multiple abdominal complaints including abdominal pain and bloating Procedure Notes Procedure in detail: After informed consent was obtained the patient was placed in the left lateral decubitus position. The video upper scope was placed into the oropharynx and with the patient's help swelled into the esophagus. The esophagus stomach and duodenum were carefully examined. On withdrawal retroflexed view the GE junction was performed. The scope was removed. The patient tolerated procedure well. Blood loss none Complications none Sedation mac Findings 1. Normal esophagus other than a large venous Ruby at 25 cm 2. Large hiatal hernia of 7 cm from 33-40 cm from the incisors. No Abebe lesions were seen 3. Intense striped erythema to the distal stomach biopsies taken to rule out Helicobacter no erosions or ulcers were seen 4. Normal duodenal bulb and sweep biopsies taken to rule out celiac We will merely await biopsies and get back to Deanna about further steps. This should include a gastric emptying study.
== END 2021-05-27 10:03 | disposition home or self-care (01) ==
PROVIDERS: PCP Internal Medicine; Referring Provider Internal Medicine Gastroenterology; Visit Provider Internal Medicine Gastroenterology
PROC: 0DJ08ZZ Inspection of Upper Intestinal Tract, Via Natural or Artificial Opening Endoscopic (ICD-10-PCS; CPT 43235; principal; 2021-05-27 09:00)
DX: K29.50 Unspecified chronic gastritis without bleeding (principal); K44.9 Diaphragmatic hernia without obstruction or gangrene; E66.9 Obesity, unspecified; E03.9 Hypothyroidism, unspecified; K21.9 Gastro-esophageal reflux disease without esophagitis; E78.5 Hyperlipidemia, unspecified; I10 Essential (primary) hypertension
CPT/HCPCS: 43239

== ENCOUNTER → 2021-06-10 10:43 | Outpatient (CLI) | payer MEDICARE, OTHER, SELFPAY ==
[2021-05-14 13:26] VITALS: BMI 45.8
[2021-06-10 11:46] LABS: Add Manual Diff / Slide Review NO; Alanine Aminotransferase 32 IU/L (<35); Albumin 4.5 g/dL (3.5-5.0); Albumin Globulin Ratio 1.8 (1.0-2.8); Alkaline Phosphatase 59 U/L (38-126); Aspartate Aminotransferase 27 IU/L (14-36); BUN Creatinine Ratio 27.1 (6-22); Basophils Absolute Auto 0 /uL (0-100); Basophils Percent Auto 0.6 % (0-2); Bilirubin Total 0.5 mg/dL (0.2-1.3); Blood Urea Nitrogen 16 mg/dL (7-17); Carbon Dioxide 32 mmol/L (22-32); Chloride 105 mmol/L (98-107); Eosinophils Absolute Auto 200 /uL (0-450); Eosinophils Percent Auto 3.8 % (2-4); Estimated Glomerular Filt Rate > 60.0 mL/min (>60); Globulin 2.5 g/dL (1.7-4.1); Glucose 103 mg/dL (80-110); HEMOLYSIS < 15 (0-50); Hemoglobin 13.4 g/dL (12.0-16.0); Lymphocytes Absolute Auto 1500 /uL (1100-4500); Lymphocytes Percent Auto 29.5 % (25-40); Mean Corpuscular HGB Conc 33.5 % (30-36); Mean Corpuscular Hemoglobin 29.2 PG (26-34); Mean Corpuscular Volume 87.1 fL (80-100); Monocytes Absolute Auto 600 /uL (0-900); Monocytes Percent Auto 11.8 % (3-14); Neutrophils Absolute Auto 2800 /uL (1500-7000); Neutrophils Percent Auto 54.3 % (50-75); Platelet Count 227 X10^3/uL (150-400); Potassium 4.4 mmol/L (3.4-5.1); Red Blood Cell Count 4.59 X10^6/uL (4.0-5.2); Red Cell Distribution Width 13.2 % (11.6-14.8); Sodium 141 mmol/L (137-145); White Blood Cell Count 5.2 X10^3/uL (4.5-11.0)
[2021-06-10 12:10] LABS: Cancer Antigen 125 6.4 U/mL (0-35)
--- NOTE | 2021-06-10 12:55 | DI.CT.S_ITS ---
PROCEDURE: CT CHEST ABD PEL W CON INDICATIONS: MALIGNANT NEOPLASM OF ENDO TECHNIQUE: After the administration of oral and intravenous contrast, axial sections acquired from the supraclavicular neck to the pubic symphysis. Coronal and sagittal reformats were performed. For radiation dose reduction, the following was used: automated exposure control, adjustment of mA and/or kV according to patient size. COMPARISON:[facility], , US PELVIC COMPLETE, 03/26/2021, 9:39. FINDINGS: Image quality: Excellent. CHEST: Lower Neck: No enlarged lymph nodes. Thyroid: Not visualized. Axillae: No enlarged lymph nodes. Small axillary lymph nodes are noted bilaterally, nonspecific. Chest Wall: Unremarkable. Lungs and Airways: Small lung nodules are identified in right lung. Cost Accounting Clerk nodules are listed: Nodule 1: 2 mm; right lower lobe; series 5, image 206. Nodule 2: 2 mm; right lower lobe; series 5, image 220. Nodules 3: 3 mm; right middle lobe; series 5 image 179. Pleura: No pneumothorax or pleural effusions. Heart: Heart size is normal. There is a small pericardial effusion. Thoracic Vessels: The aorta and pulmonary arteries demonstrate normal size. Mediastinum and Dena: No enlarged lymph nodes. Esophagus: No wall thickening. Moderate size hiatal hernia. ABDOMEN: Liver: Liver is normal in size. Mild hepatic steatosis. There are 3 small indeterminate hepatic hypodensities measuring 0.7 cm (segment 2; series 2, image 43), 0.9 cm (segment 8; series 2, image 49) and 0.3 cm (segment 6; series 2, image 69). Gallbladder: Unremarkable. Biliary ducts: Unremarkable. Pancreas: Unremarkable. Spleen: Unremarkable. Adrenal Glands: Unremarkable. Kidneys and Ureters: Unremarkable. Stomach and Bowel: Stomach, small bowel loops, and colon are unremarkable. Peritoneum: No abnormal intraperitoneal fluid. No free air. Ventral Wall: There is a small fat containing umbilical hernia. Abdominal Nodes: No retroperitoneal or mesenteric adenopathy by size criteria. Mild mesenteric stranding. Numerous small sized mesenteric lymph nodes are present. 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 Vessels: Aorta and inferior vena cava are normal in size. PELVIS: Pelvic Organs: Prominent remnant uterus or hysterectomy stump. Ovaries are not well seen. Bladder: Unremarkable. Pelvic Nodes: No enlarged lymph nodes. Miscellaneous: No inguinal hernias are seen. Bones: Moderate to severe degenerative changes in thoracic and lumbar spine. There is a lucent lesion in the superior endplate of L5, most likely a Schmorl's node. IMPRESSION: 1. Prominent hysterectomy stump/remnant uterus. 2. Multiple small lung nodules in right lung. Recommend a follow-up CT in 3 months. 3. No enlarged lymph nodes in thorax, abdomen or pelvis. 4. Mild hepatic steatosis. Small low-density nodules in liver are most likely hepatic cysts. MRI is suggested for further evaluation. 5. Moderate size hiatal hernia. Dictated by: Guerrero Leblanc M.D. on 06/10/2021 at 17:29 Approved by: Guerrero Leblanc M.D. on 06/10/2021 at 17:48
== END ==
PROVIDERS: PCP Internal Medicine; Referring Provider Obstetrics & Gynecology Gynecologic Oncology; Visit Provider Obstetrics & Gynecology Gynecologic Oncology
DX: C54.1 Malignant neoplasm of endometrium (principal); N95.0 Postmenopausal bleeding; R93.89 Abnormal findings on diagnostic imaging of other specified body structures; R91.8 Other nonspecific abnormal finding of lung field; K44.9 Diaphragmatic hernia without obstruction or gangrene; K76.0 Fatty (change of) liver, not elsewhere classified
CPT/HCPCS: 36415; 71260; 74177; 80053; 85025; 86304; Q9967

== ENCOUNTER → 2021-06-15 07:41 | Outpatient (CLI) | payer MEDICARE, OTHER, SELFPAY ==
[2021-05-14 13:26] VITALS: BMI 45.8
[2021-06-15 08:25] LABS: COVID19 -Nasal RAPID Negative (Negative)
== END ==
PROVIDERS: PCP Internal Medicine; Visit Provider Obstetrics & Gynecology
DX: Z20.822 Contact with and (suspected) exposure to COVID-19 (principal); Z01.812 Encounter for preprocedural laboratory examination
CPT/HCPCS: 87635; C9803

== ENCOUNTER → 2021-07-31 09:54 | Outpatient (CLI) | payer MEDICARE, OTHER, SELFPAY ==
[2021-07-29 14:42] VITALS: BMI 45.8
[2021-07-31 11:30] LABS: COVID19 -Nasal RAPID Negative (Negative)
== END ==
PROVIDERS: PCP Internal Medicine; Visit Provider Surgery
DX: Z01.812 Encounter for preprocedural laboratory examination (principal); Z20.822 Contact with and (suspected) exposure to COVID-19; C54.1 Malignant neoplasm of endometrium
CPT/HCPCS: 87635; 99213

== ENCOUNTER 2021-08-03 08:11 | Day surgery (SDC) | payer MEDICARE, OTHER, SELFPAY ==
[2021-07-29 14:42] VITALS: BMI 45.8
[2021-07-30 14:08] VITALS: BMI 44.8
[2021-08-03] VITALS (8 sets, daily range): BP systolic 112–143; BP diastolic 75–89; PULSE 83–96; RESP 13–143; TEMP 36.3–36.7; O2SAT 13–96; BMI 44.8
--- NOTE | 2021-08-03 | DI.RAD.S_ITS ---
PROCEDURE: XR CHEST 1V INDICATIONS: RIGHT PORT PLACEMENT TECHNIQUE: One view of the chest was acquired. COMPARISON: [facility], CT, CT CHEST ABD PEL W CON, 06/10/2021, 13:43. [facility], CR, XR CHEST 1V, 08/03/2021, 12:10. FINDINGS: Surgical changes and devices: Right chest wall port a catheter is present, tip of which is in the lower SVC. Lungs and pleura: Lungs are clear. No pleural effusions or pneumothorax. Mediastinum: Mediastinal contours appear normal. Heart size is normal. Bones and chest wall: No suspicious bony lesions. Overlying soft tissues appear unremarkable. IMPRESSION: No acute process. Dictated by: Sophy Hobbs M.D. on 08/03/2021 at 16:08 Approved by: Sophy Hobbs M.D. on 08/03/2021 at 16:53
[2021-08-03] MEDS: LACTATED RINGERS 1,000 ML 42 ML IV (08:35)
--- NOTE | 2021-08-03 09:47 | PM.PREOP ---
Pre-operative Note COVID-19 COVID-19 status: Negative Result date/Date tested (Pos, Neg/Pending): 07/31/21 Interval Note History & Physical reviewed/Exam performed by Physician: Yes Changes to H&P: No ASA Class (for procedural sedation): II
[2021-08-03] MEDS: CEFAZOLIN 1 GM VIAL 3 GM IV (10:10)
[2021-08-03] MEDS: BUPIVACAINE 0.5% (PF) 30 ML, EPINEPHrine 0.15 MG INJ (10:40)
[2021-08-03] MEDS: HEPARIN 5,000 UNIT, SODIUM CHLORIDE 0.9% 50 ML IV (10:43)
[2021-08-03] MEDS: SODIUM CHLORIDE 0.9% FLUSH 10 ML IV (10:45)
--- NOTE | 2021-08-03 11:03 | SUR.OPER ---
Supine on padded OR bed, head on gel donut, rolled towel under neck, arms padded and tucked at sides, legs uncrossed, safety belt at thigh, tape over blanket over lower legs .
--- NOTE | 2021-08-03 11:18 | DI.RAD.S_ITS ---
PROCEDURE: XR CHEST 1V INDICATIONS: post port placement TECHNIQUE: 1 fluoroscopic spot film of the upper chest was obtained. COMPARISON: [facility], , XR CHEST 1V, 08/03/2021, 11:25. FINDINGS: Single low resolution intraoperative fluoroscopic spot film shows right-sided Port-A-Cath tip in the SVC at the cavoatrial junction. No pneumothorax. IMPRESSION: Fluoroscopic guidance Approved by: Ramakrishna Ferguson M.D. on 08/03/2021 at 10:56
--- NOTE | 2021-08-03 11:25 | PM.OP.1 ---
Operative Date/Time/Diagnoses Date of procedure: 08/03/21 Time of procedure: 11:25 Pre-op diagnosis: Endometrial cancer Post-op diagnosis: same Procedure & Clinicians Procedure: Port a cath Same procedure as scheduled: Yes Indications: Endometrial cancer Surgeon: Crow Rich Click Yes if Unassisted: Yes Anesthesia Type: General Operative Notes Closure Type: primary Specimen(s): none sent Estimated Blood Loss (mL): 15 Procedure in detail: The patient was brought to the operating room, placed on the table in the supine position with the arms tucked. Ancef was administered. Anesthesia was induced via LMA. A time-out was performed. The right chest and neck were prepped and draped in the usual fashion. An ultrasound was used to identify the right internal jugular vein. The vein was noted to be patent. The right internal jugular vein was accessed via the Seldinger technique under ultrasound guidance. Initially, the guidewire was noted to be going cephalad in the vein and so with fluoro the wire was repositioned such that it was going down towards the superior vena cava. There was some difficulty getting beyond innominate vein into superior vena cava, possibly from a stricture but we were eventually able to get wire to pass without resistance using fluoro for guidance. C-arm was used confirmed proper position of the guidewire in the superior vena cava and no ectopy was noted. The needle was removed and the wire was clamped to the drape. Next, a port pocket was created just inferior to the medial clavicle. Dissection was carried down to the pectoral fascia. A subcutaneous pocket was created using a combination of sharp and blunt dissection. Next, the port which was primed with injectable saline, was secured to the fascia with 3-0 PDS sutures left untied and clamped. The dilator and peel-away sheath were inserted over the wire without resistance. The catheter was passed from the neck incision to the chest incision in the subcutaneous tissue using the tunnelling device. The wire and dilator were then removed and the catheter inserted through the peel-away sheath to deliver it into the superior vena cava. The depth of the device was checked using the C-arm and the tip of the device was noted to be in the superior vena cava. The distal end of the catheter was then trimmed and attached to the port using the strain relief collar. A final image showed good position of the catheter with no kinks. The port was then tucked into the subcutaneous pocket and the sutures were tied to secure the device. The port was then accessed using the Hernandez needle and it was noted that the device juanita and flushed easily without resistance. Approximately 6 mL of heparinized saline were injected into the device. The skin incisions were closed with 3-0 Vicryl and 4-0 Monocryl. Steri-Strips were applied patient was awakened and brought to recovery room EBL: 15 mL Ultrasound: The right internal jugular vein was patent. The right carotid artery was visualized adjacent to the vein. Venipuncture was visualized in real-time using the ultrasound. Fluoroscopy: The wire was visualized entering superior vena cava and the device was positioned appropriately with the distal end of the catheter near the atriocaval junction. There were no kinks in the catheter.
[2021-08-03] MEDS: ONDANSETRON 4 MG/2 ML INJ IV (11:40)
[2021-08-03] MEDS: OXYCODONE/ACETAMINOPHEN 5/325 TABLET 1 TAB PO ×2 (11:52→12:28)
[2021-08-03] MEDS: hydrOXYzine 50 MG/ML INJ 25 MG IM (12:28)
== END 2021-08-03 13:03 | disposition home or self-care (01) ==
PROVIDERS: PCP Internal Medicine; Referring Provider Surgery; Visit Provider Surgery
PROC: (CPT 36561; principal; 2021-08-03 09:45)
DX: C54.1 Malignant neoplasm of endometrium (principal)
CPT/HCPCS: 36561; 71045; 76000; C1788; J0171; J0690; J1100; J1644; J2250; J2405; J2704; J3010; J3410

== ENCOUNTER 2021-08-12 15:08 | Emergency (ER) | payer MEDICARE, OTHER, SELFPAY ==
[2021-07-29 14:42] VITALS: BMI 45.8
[2021-08-12 15:15] VITALS: BP 141/70; PULSE 86; RESP 18; TEMP 36.7; O2SAT 97; BMI 44.6
--- NOTE | 2021-08-12 15:23 | DI.RAD.S_ITS ---
PROCEDURE: XR CHEST 1V INDICATIONS: chest pain TECHNIQUE: One view of the chest was acquired. COMPARISON: [facility], CT, CT CHEST ABD PEL W CON, 06/10/2021, 13:43. [facility], CR, XR CHEST 1V, 08/03/2021, 12:10. FINDINGS: Surgical changes and devices: Right chest Port-A-Cath Lungs and pleura: Lungs are clear. No pleural effusions or pneumothorax. Mediastinum: Mediastinal contours appear normal. Heart size is normal. Hiatal hernia. Bones and chest wall: No suspicious bony lesions. Overlying soft tissues appear unremarkable. IMPRESSION: Hiatal hernia. No evidence acute pulmonary process. Dictated by: Ricardo Shipley M.D. on 08/12/2021 at 16:01 Approved by: Ricardo Shipley M.D. on 08/12/2021 at 16:02
[2021-08-12 15:47] LABS: Add Manual Diff / Slide Review NO; Basophils Absolute Auto 0 /uL (0-100); Basophils Percent Auto 0.5 % (0-2); Eosinophils Absolute Auto 0 /uL (0-450); Eosinophils Percent Auto 0.2 % (2-4); Hemoglobin 13.7 g/dL (12.0-16.0); Lymphocytes Absolute Auto 800 /uL (1100-4500); Lymphocytes Percent Auto 13.3 % (25-40); Mean Corpuscular HGB Conc 34.1 % (30-36); Mean Corpuscular Hemoglobin 29.5 PG (26-34); Mean Corpuscular Volume 86.4 fL (80-100); Monocytes Absolute Auto 100 /uL (0-900); Monocytes Percent Auto 1.9 % (3-14); Neutrophils Absolute Auto 4900 /uL (1500-7000); Neutrophils Percent Auto 84.1 % (50-75); Platelet Count 192 X10^3/uL (150-400); Red Blood Cell Count 4.64 X10^6/uL (4.0-5.2); Red Cell Distribution Width 13.2 % (11.6-14.8); White Blood Cell Count 5.8 X10^3/uL (4.5-11.0)
[2021-08-12 15:53] LABS: Alanine Aminotransferase 30 IU/L (<35); Albumin 4.5 g/dL (3.5-5.0); Albumin Globulin Ratio 1.8 (1.0-2.8); Alkaline Phosphatase 62 U/L (38-126); Aspartate Aminotransferase 26 IU/L (14-36); BUN Creatinine Ratio 25.8 (6-22); Bilirubin Total 0.4 mg/dL (0.2-1.3); Blood Urea Nitrogen 16 mg/dL (7-17); Calcium 9.2 mg/dL (8.4-10.2); Carbon Dioxide 26 mmol/L (22-32); Chloride 108 mmol/L (98-107); Creatine Kinase 60 U/L (30-135); Estimated Glomerular Filt Rate > 60.0 mL/min (>60); Globulin 2.5 g/dL (1.7-4.1); Glucose 127 mg/dL (80-110); HEMOLYSIS < 15 (0-50); Lipase 67 U/L (23-300); Potassium 3.9 mmol/L (3.4-5.1); Sodium 142 mmol/L (137-145)
[2021-08-12 16:05] LABS: Troponin I < 0.012 ng/mL (0.01-0.034)
--- NOTE | 2021-08-12 16:09 | ED.CHESTPAIN ---
HPI - Chest Pain General Chief Complaint: Chest Pain Stated Complaint: Chest spasms/chemo reaction Time Seen by Provider: 08/12/21 15:46 Source: patient and family Mode of arrival: Wheelchair Limitations: no limitations History of Present Illness HPI narrative: 70-year-old female. History of endometrial cancer. Was at the chemotherapy infusion clinic for receiving her 1st dose of chemotherapy medication when just after starting the medication she started to feel nauseous. She then started to have cramping in her back. Is also having cramping in her chest. She was given medications which she thinks was Benadryl and also a steroid. She was observed in the infusion clinic for short period of time. They re-attempted the chemotherapy and symptoms returned. She states she was told that she received approximately 2 cc of the chemotherapy medication. She was sent to the emergency department for evaluation. She states she is feeling somewhat better. Related Data Home Medications Medication Instructions Recorded Confirmed [LEG CRAMPS PM] 2 tab PO HS #0 08/18/16 08/12/21 [RESTFULL LEGS] 2 tab SUBLINGUAL HS #0 08/18/16 08/12/21 levothyroxine 200 mcg tablet 0.2 mg PO QDAY #0 08/18/16 08/12/21 (Synthroid) meloxicam 7.5 mg tablet (Mobic) 7.5 mg PO AMCC #0 08/18/16 08/12/21 albuterol 90 mcg/actuation aerosol 90 mcg INHALATION PRN PRN 06/20/19 08/12/21 inhaler ascorbic acid (vitamin C) 250 mg 250 mg PO DAILY 06/20/19 08/12/21 tablet calcium carb-D3-mag [id number] 3 tab PO DAILY 06/20/19 08/12/21 docusate sodium 100 mg capsule 100 mg PO PRN PRN 06/20/19 08/12/21 (Dulcolax Stool Softener (docusate)) ferrous sulfate 325 mg (65 mg 325 mg PO DAILY 06/20/19 08/12/21 iron) tablet glucos sul [id number]-C-Mn 1 tab PO DAILY 06/20/19 08/12/21 [Glucosamine Chondroitin] melatonin 5 mg capsule 5 mg PO DAILY cap 06/20/19 08/12/21 pantoprazole 40 mg tablet,delayed 40 mg PO DAILY 06/20/19 08/12/21 release rosuvastatin 10 mg tablet (Crestor) 10 mg PO DAILY 11/18/20 08/12/21 cholecalciferol (vitamin D3) 10 15 mcg PO BEDTIME 12/30/20 08/12/21 mcg (400 unit) tablet (Vitamin D3) cyanocobalamin (vitamin B-12) 2,500 mcg PO DAILY 12/30/20 08/12/21 2,500 mcg tablet diphenhydramine HCl 50 mg tablet 50 mg PO BEDTIME 12/30/20 08/12/21 fexofenadine 180 mg tablet 180 mg PO DAILY #0 12/30/20 08/12/21 inulin 2 gram chewable tablet 1 g PO DAILY 12/30/20 08/12/21 (Fiber Gummies) albuterol sulfate 90 mcg/actuation See Rx Instructions .ROUTE .COMPLEX 05/14/21 08/12/21 aerosol inhaler oxycodone-acetaminophen 5 mg-325 1 tab PO ONCE HS PRN 07/29/21 08/12/21 mg tablet fluticasone 250 mcg-salmeterol 50 1 inh INHALATION BID 08/12/21 08/12/21 mcg/dose blistr powdr for inhalation (Advair Diskus) Previous Rx's Medication Instructions Recorded ondansetron HCl 8 mg tablet 8 mg PO Q6HR PRN #30 tab 07/29/21 prochlorperazine maleate 10 mg 10 mg PO Q6H PRN #30 tab 07/29/21 tablet (Compazine) lorazepam 1 mg tablet (Ativan) 1 mg PO Q6HR PRN #30 tab 08/04/21 lidocaine HCl 2 % mucosal solution 1 applic MUCOUS MEMBRANE BID #100 08/07/21 (Lidocaine Viscous) ml cyclobenzaprine 10 mg tablet 10 mg PO TID PRN #14 tab 08/12/21 Allergies Allergy/AdvReac Type Severity Reaction Status Date / Time gabapentin [GABAPENTIN] Allergy Mild FACIAL RASH Verified 08/12/21 15:20 Review of Systems Constitutional Constitutional: Denies fever(s) Cardiovascular Cardiovascular: Reports as per HPI and Reports system reviewed and no additional complaints, except as documented Respiratory Respiratory: Reports as per HPI and Reports system reviewed and no additional complaints, except as documented Genitourinary Genitourinary: Reports system reviewed and no additional complaints, except as documented Musculoskeletal Musculoskeletal: Reports system reviewed and no additional complaints, except as documented Integumentary/Breasts Skin/Breast: Reports system reviewed and no additional complaints, except as documented Neurologic Neurologic: Reports system reviewed and no additional complaints, except as documented Psychiatric Psychiatric: Reports system reviewed and no additional complaints, except as documented Hematologic/Lymphatic On Anticoagulants: No Patient History Medical History Acquired hypothyroidism (~1994) Allergies (~1969) Asthma Cataract Cataracts, bilateral (~2013) Chicken pox Colon polyps (~2017) Essential hypertension Frequent UTI GERD (gastroesophageal reflux disease) (~2009) Headache Heavy menstrual period (~1999) Hemorrhoid (~2014) Hiatal hernia History of colon polyps Hypercholesterolemia Hypothyroid Insomnia Measles Obesity JOANIE on CPAP Peripheral neuropathy Pernicious anemia RLS (restless legs syndrome) Seasonal allergic conjunctivitis Seasonal allergies Sleep related leg cramps Vitamin B12 deficiency 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 Wheezing Surgical History H/O carpal tunnel repair (~2009) History of section History of femoral hernia repair History of hysteroscopy (01/08/21) S/P laparoscopic supracervical hysterectomy (05/14/21) S/P tonsillectomy and adenoidectomy Status post right knee replacement Status post trachelectomy (06/16/21) [place] teeth extracted Social History household members: spouse Smoking Status: Never smoker alcohol intake: never Smoking Status: Never smoker alcohol intake frequency: 0-2 drinks per day Substance Use Type: does not use Exam Initial Vital Signs Initial Vital Signs: Vital Signs Temperature 98.1 F 08/12/21 15:15 Pulse Rate 86 08/12/21 15:15 Respiratory Rate 18 08/12/21 15:15 Blood Pressure 141/70 H 08/12/21 15:15 Pulse Oximetry 97 08/12/21 15:15 Const General: cooperative, comfortable, well developed and well groomed Limitations: mental status not altered HENMT Head: normal to inspection and normocephalic Resp Effort & Inspection: normal respiratory effort Auscultation: clear to auscultation bilaterally Cardio Rate: regular rate Rhythm: regular rhythm GI Inspection: non-distended Palpation: soft Back/Spine/Pelvis Thoracic/Lumbar Spine: No paraspinal tenderness, No thoracic spinal tenderness and No lumbar spinal tenderness Skin Lesions: no lesions Rashes: no rashes Neuro General: patient alert, patient awake, patient oriented x3 and moves all extremities Extrem General: capillary refill normal Psych Appearance: grossly normal and well kempt Course Orders Ordered: ED Orders 08/12/21 15:23 XR chest 1V Stat EKG-12 Lead Stat 08/12/21 15:38 Complete Blood Count AUTO DIFF Stat Comprehensive Metabolic Panel Stat Lipase Stat Troponin & CK Cardiac Panel Stat Vital Signs Vital signs: Vital Signs - 8 hr 08/12/21 15:15 08/12/21 16:15 08/12/21 16:30 Temperature 98.1 F Pulse Rate 86 88 86 Respiratory Rate 18 Blood Pressure 141/70 H 139/75 146/87 H Pulse Oximetry 97 95 95 MDM - Chest Pain Lab Data Attestation: I reviewed the patient's lab results. Result diagrams: 08/12/21 15:38 08/12/21 15:38 Labs: Lab Results 08/12/21 08/12/21 Range/Units 15:38 15:38 WBC 5.8 (4.5-11.0) X10^3/uL RBC 4.64 (4.0-5.2) X10^6/uL Hgb 13.7 (12.0-16.0) g/dL Hct 40.0 (36-46) % MCV 86.4 (80-100) fL MCH 29.5 (26-34) PG MCHC 34.1 (30-36) % RDW 13.2 (11.6-14.8) % Plt Count 192 (150-400) X10^3/uL Neut % (Auto) 84.1 H D (50-75) % Lymph % (Auto) 13.3 L (25-40) % [place] % (Auto) 1.9 L (3-14) % Eos % (Auto) 0.2 L (2-4) % Baso % (Auto) 0.5 (0-2) % Neut # (Auto) 4900 (6468-5671) /uL Lymph # (Auto) 800 L (4362-3480) /uL [place] # (Auto) 100 (0-900) /uL Eos # (Auto) 0 (0-450) /uL Baso # (Auto) 0 (0-100) /uL Sodium 142 (137-145) mmol/L Potassium 3.9 (3.4-5.1) mmol/L Chloride 108 H (98-107) mmol/L Carbon Dioxide 26 (22-32) mmol/L BUN 16 (7-17) mg/dL Creatinine 0.62 (0.52-1.04) mg/dL Estimated GFR > 60.0 (>60) mL/min BUN/Creatinine Ratio 25.8 H (6-22) Glucose 127 H (80-110) mg/dL Calcium 9.2 (8.4-10.2) mg/dL Total Bilirubin 0.4 (0.2-1.3) mg/dL AST 26 (14-36) IU/L ALT 30 (<35) IU/L Alkaline Phosphatase 62 (38-126) U/L Total Creatine Kinase 60 (30-135) U/L CK-MB (CK-2) TNP CK-MB (CK-2) Rel Index TNP Troponin I < 0.012 (0.01-0.034) ng/mL Total Protein 7.0 (6.3-8.2) g/dL Albumin 4.5 (3.5-5.0) g/dL Globulin 2.5 (1.7-4.1) g/dL Albumin/Globulin Ratio 1.8 (1.0-2.8) Lipase 67 (23-300) U/L Imaging Data Chest x-ray: Radiologist's Impression: [address] [address] XRay Report Signed Patient: Deanna Bean MR#: [id number] : 1950 Acct:[id number] Age/Sex: 70 / F Date of Service: 08/12/21 Loc: ED Accession Number: [id number] ?? Procedure: XR chest 1V Ordering Provider: Jeffrey Little D.O. PROCEDURE:? XR CHEST 1V ? INDICATIONS:? chest pain ? TECHNIQUE:? One view of the chest was acquired.? ? COMPARISON:? [facility], CT, CT CHEST ABD PEL W CON, 06/10/2021, 13:43.? [facility], CR, XR CHEST 1V, 08/03/2021, 12:10. ? FINDINGS:? ? Surgical changes and devices:? Right chest Port-A-Cath ? Lungs and pleura:? Lungs are clear.? No pleural effusions or pneumothorax.? ? Mediastinum:? Mediastinal contours appear normal.? Heart size is normal.? Hiatal hernia.? ? ? Bones and chest wall:? No suspicious bony lesions.? Overlying soft tissues appear unremarkable.? ? IMPRESSION:? Hiatal hernia. No evidence acute pulmonary process. ? ? ? Dictated by: Ricardo Shipley M.D. on 08/12/2021 at 16:01 ? ? Approved by: Ricardo Shipley M.D. on 08/12/2021 at 16:02?? ECG Data Attestation: I personally reviewed and interpreted this ECG as follows: Interpretation: Sinus rhythm Ventricular rate 88 Normal axis Normal QTC Normal QRS No ST T wave changes MDM Narrative Medical decision making narrative: Patient has been approximately 3 hours after the infusion of her chemotherapy medications and certainly has not worsened and has actually improved in her symptoms. No further medications were given here in the emergency department. Labs are unremarkable. No problems breathing. Unsure as to whether not she actually had an allergic reaction to the chemotherapy medication I informed her that she needed talk with her oncologist about where to go from here with regard to that. Will sent home with muscle relaxers for her back spasms. Discharge home without further workup. She was given return precautions. She expressed understanding and agreement. Discharge Plan Departure Patient Disposition: Home Clinical Impression: Muscle spasm, Nausea Instructions: DI for Nausea -- Adult, DI for Muscle Spasm Activity Restrictions/Additional Instructions: Continue to take all of your medications as directed. Recommend that you contact your oncologist to discuss where to go from here with regard to your chemotherapy. Also contact her primary doctor for follow-up. Return to the emergency department for any new or worsening symptoms Prescriptions: New cyclobenzaprine 10 mg tablet 10 mg PO TID PRN (Reason: muscle spasm) Qty: 14 0RF No Action levothyroxine [Synthroid] 200 MCG tablet 0.2 mg PO QDAY Qty: 0 0RF meloxicam [Mobic] 7.5 MG tablet 7.5 mg PO AMCC Qty: 0 0RF [LEG CRAMPS PM] 2 tab PO HS Qty: 0 0RF [RESTFULL LEGS] 2 tab Sublingual HS Qty: 0 0RF rosuvastatin [Crestor] 10 mg tablet 10 mg PO DAILY 0RF lidocaine HCl [Lidocaine Viscous] 2 % solution 1 applic mucous membrane BID Qty: 100 0RF Rx Instructions: Gargle with 5-10 mL of solution twice daily diphenhydramine HCl 50 mg Tablet 50 mg PO BEDTIME 0RF fexofenadine 180 mg Tablet 180 mg PO DAILY Qty: 0 0RF cholecalciferol (vitamin D3) [Vitamin D3] 10 mcg (400 unit) Tablet 15 mcg PO BEDTIME 0RF cyanocobalamin (vitamin B-12) 2,500 mcg Tablet 2,500 mcg PO DAILY 0RF Fiber Gummies 2 gram Tablet,Chewable 1 g PO DAILY 0RF albuterol sulfate 90 mcg/actuation HFA aerosol inhaler See Rx Instructions .ROUTE .COMPLEX 0RF Rx Instructions: see note oxycodone-acetaminophen 5-325 mg Tablet 1 tab PO ONCE HS PRN (Reason: Pain (Scale Score 4-6)) 0RF prochlorperazine maleate [Compazine] 10 mg Tablet 10 mg PO Q6H PRN (Reason: Nausea) Qty: 30 0RF ondansetron HCl 8 mg Tablet 8 mg PO Q6HR PRN (Reason: Nausea) Qty: 30 0RF lorazepam [Ativan] 1 mg Tablet 1 mg PO Q6HR PRN (Reason: Nausea) Qty: 30 0RF fluticasone propion-salmeterol [Advair Diskus] 250-50 mcg/dose Blister With Device 1 inh INHALATION BID 0RF pantoprazole 40 mg tablet,delayed release (DR/EC) 40 mg PO DAILY 0RF glucos sul [id number]-jva-sxbil-C-Mn 1 tab PO DAILY 0RF calcium carb-D3-mag [id number] 3 tab PO DAILY 0RF melatonin 5 mg capsule 5 mg PO DAILY 0RF ferrous sulfate 325 mg (65 mg iron) tablet 325 mg PO DAILY 0RF ascorbic acid (vitamin C) 250 mg tablet 250 mg PO DAILY 0RF albuterol 90 mcg/actuation aerosol 90 mcg INHALATION PRN PRN (Reason: Wheezing) 0RF docusate sodium [Dulcolax Stool Softener (dss)] 100 mg capsule 100 mg PO PRN PRN (Reason: Constipation) 0RF Referrals: Hemanth Hurt MD [Primary Care Provider] -
[2021-08-12 16:15] VITALS: BP 139/75; PULSE 88; O2SAT 95
[2021-08-12 16:30] VITALS: BP 146/87; PULSE 86; O2SAT 95
== END 2021-08-12 17:30 | disposition home or self-care (01) ==
PROVIDERS: Emergency Provider Emergency Medicine; PCP Internal Medicine
DX: M62.830 Muscle spasm of back (principal); M62.838 Other muscle spasm; R11.0 Nausea; Z51.11 Encounter for antineoplastic chemotherapy; C54.1 Malignant neoplasm of endometrium
CPT/HCPCS: 36415; 36591; 71045; 80053; 82550; 83690; 84484; 85025; 93005; 99214; 99284; J1100; J1200; J1453; J1642; J2405; J2930; J7060; J9267

== ENCOUNTER → 2022-02-02 10:02 | Outpatient (CLI) | payer MEDICARE, OTHER, SELFPAY ==
[2021-07-29 14:42] VITALS: BMI 45.8
--- NOTE | 2022-02-02 10:50 | DI.CT.S_ITS ---
PROCEDURE: CT CHEST ABD PEL W CON INDICATIONS: endometrial cancer post treatment assessment TECHNIQUE: After the administration of oral and intravenous contrast, axial sections acquired from the supraclavicular neck to the pubic symphysis. Coronal and sagittal reformats were performed. For radiation dose reduction, the following was used: automated exposure control, adjustment of mA and/or kV according to patient size. COMPARISON:[facility], CT, CT CHEST ABD PEL W CON, 06/10/2021, 13:43. FINDINGS: Image quality: Excellent. CHEST: Lower Neck: No enlarged lymph nodes. Thyroid: Not well visualized. Axillae: No enlarged lymph nodes. Chest Wall: Unremarkable. Lungs and Airways: No consolidation. Nodule 1: 2.8 mm; right lower lobe, pleural based, 3-209 Nodule 2: 3.5 mm; right lower lobe, pleural based, 3-223 Nodule 3: 2.2 mm right middle lobe, pleural based; 3-179 Pleura: No pneumothorax or pleural effusions. Heart: Heart size is normal. Trace pericardial effusion. Thoracic Vessels: The aorta and pulmonary arteries demonstrate normal size. Mediastinum and Dena: No enlarged lymph nodes. Esophagus: No wall thickening. Moderate hiatal hernia. ABDOMEN: Liver: Enlarged, measuring 19.6 cm in length. Redemonstrated scattered hypoattenuating lesions in the liver, measuring up to 1 cm, unchanged. Gallbladder: Unremarkable. Biliary ducts: Unremarkable. Pancreas: Unremarkable. Spleen: Unremarkable. Adrenal Glands: Unremarkable. Kidneys and Ureters: Unremarkable. Stomach and Bowel: No evidence of intestinal obstruction or inflammatory change. Normal appearance of the appendix. Persistent faint infiltrative change of the mesentery. Peritoneum: No abnormal intraperitoneal fluid. No free air. Ventral Wall: Trace fat containing periumbilical hernia. Abdominal Nodes: No retroperitoneal or mesenteric adenopathy by size criteria. Vessels: Aorta and inferior vena cava are normal in size. PELVIS: Pelvic Organs: Unremarkable. Bladder: Unremarkable. Pelvic Nodes: No enlarged lymph nodes. Miscellaneous: No inguinal hernias are seen. Soft tissue density of the left inguinal region, which may reflect postsurgical change. Bones: Multifocal degenerative change, unchanged. 7.4 mm fat attenuation lesion at L2, likely reflecting a hemangioma. IMPRESSION: 1. Redemonstrated right middle and lower lobe pulmonary nodules, grossly unchanged. 2. Soft tissue density in the left inguinal region, which may reflect postsurgical change. Dictated by: Ayo Lozada M.D. on 02/02/2022 at 12:45 Approved by: Ayo Lozada M.D. on 02/02/2022 at 12:58
== END ==
PROVIDERS: PCP Internal Medicine; Referring Provider Internal Medicine Medical Oncology; Visit Provider Internal Medicine Medical Oncology
DX: C54.1 Malignant neoplasm of endometrium (principal); R91.8 Other nonspecific abnormal finding of lung field
CPT/HCPCS: 71260; 74177

== ENCOUNTER → 2022-03-23 13:52 | Outpatient (CLI) | payer MEDICARE, OTHER, SELFPAY ==
[2021-07-29 14:42] VITALS: BMI 45.8
--- NOTE | 2022-03-23 | DI.MG.S_ITS ---
BILATERAL DIGITAL SCREENING MAMMOGRAM 3D/2D WITH CAD: 03/23/2022 CLINICAL: Routine screening. Comparison is made to exams dated: 11/21/2020 mammogram, 04/13/2019 mammogram - [facility], and 04/07/2017 mammogram - [facility]. There are scattered fibroglandular elements in both breasts. Current study was also evaluated with a Computer Aided Detection (CAD) system. No significant masses, calcifications, or other findings are seen in either breast. There has been no significant interval change. IMPRESSION: NEGATIVE There is no mammographic evidence of malignancy. A 1 year screening mammogram is recommended. Based on the Tyrer Cuzick model (a risk assessment model) the patient's lifetime risk is 5.3% and her 10 year risk is 3.1%. According to the ACR, ACS, and NCCN guidelines, an annual breast MRI exam along with mammogram is recommended if the patient's lifetime risk is 20% or greater. This exam was interpreted at Station ID: [id number]. NOTE: For mammograms, a report in lay terms will be sent to the patient. Approximately 15% of breast malignancies will not be visualized mammographically. In the management of a palpable breast mass, a negative mammogram must not discourage biopsy of a clinically suspicious lesion. Electronically Signed By: Christiana mike/veronica:03/23/2022 15:16:22 letter sent: Normal Exam ACR BI-RADS Category 1: Negative [id number]
== END ==
PROVIDERS: PCP Internal Medicine; Referring Provider Internal Medicine; Visit Provider Internal Medicine
DX: Z12.31 Encounter for screening mammogram for malignant neoplasm of breast (principal); C54.1 Malignant neoplasm of endometrium
CPT/HCPCS: 77063; 77067; 96523

== ENCOUNTER → 2022-08-04 11:54 | Outpatient (CLI) | payer MEDICARE, OTHER, SELFPAY ==
[2022-07-19 10:22] VITALS: BMI 45.8
--- NOTE | 2022-08-04 11:56 | DI.CT.S_ITS ---
PROCEDURE: CT CHEST ABD PEL W CON INDICATIONS: monitoring endometrial cancer TECHNIQUE: After the administration of oral and intravenous contrast, axial sections acquired from the supraclavicular neck to the pubic symphysis. Coronal and sagittal reformats were performed. For radiation dose reduction, the following was used: automated exposure control, adjustment of mA and/or kV according to patient size. COMPARISON: [facility], CT, CT CHEST ABD PEL W CON, 06/10/2021, 13:43. [facility], CT, CT CHEST ABD PEL W CON, 02/02/2022, 11:11. FINDINGS: Image quality: Excellent. CHEST: Lower Neck: No enlarged lymph nodes. Thyroid: Diffusely small Axillae: No enlarged lymph nodes. Chest Wall: Unremarkable. Right chest Port-A-Cath. Lungs and Airways: Pulmonary nodules are as follows: 1: Unchanged subpleural 3 mm right lower lobe pulmonary nodule, image 225/3. 2. Unchanged 4 mm pleural based pulmonary nodule, posterior right lung base, image 237/3. 3. Unchanged 3 mm pleural based pulmonary nodule, right middle lobe, image 203/3. No consolidation or suspicious growing nodules. Pleura: No pneumothorax or pleural effusions. Heart: Heart size is normal. Minimal pericardial effusion. Thoracic Vessels: The aorta and pulmonary arteries demonstrate normal size. Mediastinum and Dena: No enlarged lymph nodes. Esophagus: No wall thickening. Moderate hiatal hernia. ABDOMEN: Liver: Unremarkable. Gallbladder: Unremarkable. Biliary ducts: Unremarkable. Pancreas: Unremarkable. Spleen: Unremarkable. Adrenal Glands: Unremarkable. Kidneys and Ureters: Unremarkable. Stomach and Bowel: Sigmoid diverticulosis without evidence of diverticulitis. Peritoneum: No abnormal intraperitoneal fluid. No free air. Ventral Wall: No hernia. Abdominal Nodes: No retroperitoneal or mesenteric adenopathy by size criteria. Vessels: Aorta and inferior vena cava are normal in size. PELVIS: Pelvic Organs: Uterus is surgically absent.. Bladder: Unremarkable. Pelvic Nodes: No enlarged lymph nodes. Miscellaneous: No inguinal hernias are seen. There are small retroperitoneal nodular densities anterior to the psoas muscles bilaterally, which have been present on all 3 studies. They most likely represent retroperitoneal metastatic disease. On the more recent previous study, image 80/2, a conglomerate mass of 3 small nodules measured approximately 1.7 x 1.4 cm. On the current study, it measures 1.2 x 1.2 cm. On the initial study, in the left pelvis, anterior to the proximal left external iliac artery, was a partially calcified nodular density measuring approximately 1.3 x 1.1 cm. On current image 88/2 it measures 1.0 x 1.0 cm. Bones: Lumbar degenerative change. No lytic or blastic bony lesions. No compression fractures. IMPRESSION: 1. Stable tiny pulmonary nodules, no findings suspicious of metastatic disease in the chest. 2. Remote hysterectomy. 3. There are small retroperitoneal densities, as described above, in the lower abdomen/upper pelvis bilaterally, which have decreased in size compared to the previous studies, and are felt to represent response of metastatic lesions to therapy. 4. No evidence of progression of disease in the abdomen and pelvis. Dictated by: Ricardo Shipley M.D. on 08/04/2022 at 17:24 Approved by: Ricardo Shipley M.D. on 08/04/2022 at 17:41
== END ==
PROVIDERS: PCP Internal Medicine; Referring Provider Internal Medicine Medical Oncology; Visit Provider Internal Medicine Medical Oncology
DX: C54.1 Malignant neoplasm of endometrium (principal); R91.8 Other nonspecific abnormal finding of lung field; K44.9 Diaphragmatic hernia without obstruction or gangrene; K57.30 Diverticulosis of large intestine without perforation or abscess without bleeding; Z90.710 Acquired absence of both cervix and uterus; K66.9 Disorder of peritoneum, unspecified
CPT/HCPCS: 71260; 74177; Q9967

== ENCOUNTER → 2023-02-01 11:50 | Outpatient (CLI) | payer MEDICARE, OTHER, SELFPAY ==
[2022-07-19 10:22] VITALS: BMI 45.8
--- NOTE | 2023-02-01 11:52 | DI.CT.S_ITS ---
PROCEDURE: CT CHEST ABD PEL W CON INDICATIONS: endometrial cancer monitoring TECHNIQUE: After the administration of oral and intravenous contrast, axial sections acquired from the supraclavicular neck to the pubic symphysis. Coronal and sagittal reformats were performed. For radiation dose reduction, the following was used: automated exposure control, adjustment of mA and/or kV according to patient size. COMPARISON: [facility], CT, CT CHEST ABD PEL W CON, 08/04/2022, 13:47. FINDINGS: Image quality: Excellent. CHEST: Lower Neck: No enlarged lymph nodes. Thyroid: Absent. Axillae: No enlarged lymph nodes. Chest Wall: Unremarkable. Lungs and Airways: Stable solid pulmonary nodules in the right middle lobe (series 5, image 185) right lower lobe (series 5, image 213) and right lower lobe (series 5, image 227). Additional smaller juxtapleural nodules are present, also likely benign Pleura: No pneumothorax or pleural effusions. Heart: Heart size is normal. No pericardial effusion. Thoracic Vessels: The aorta and pulmonary arteries demonstrate normal size. Mediastinum and Dena: No enlarged lymph nodes. Esophagus: Mild distal wall thickening. Moderate hiatal hernia. ABDOMEN: Liver: Stable subcentimeter hypoattenuating lesions, likely small cysts. Gallbladder: Unremarkable. Biliary ducts: Unremarkable. Pancreas: Unremarkable. Spleen: Unremarkable. Adrenal Glands: Unremarkable. Kidneys and Ureters: Unremarkable. Stomach and Bowel: Stomach, small bowel loops, and colon are unremarkable. Peritoneum: No abnormal intraperitoneal fluid. No free air. Ventral Wall: No hernia. Abdominal Nodes: No retroperitoneal or mesenteric adenopathy by size criteria. Vessels: Aorta and inferior vena cava are normal in size. PELVIS: Pelvic Organs: Prior hysterectomy and bilateral salpingo oophorectomy. Bladder: Unremarkable. Pelvic Nodes: The previously described 1.2 cm retroperitoneal nodularity likely corresponds to the right ovarian vein (series 2, image 79), and the left-sided calcified lesion likely corresponds to the left ovarian vein (series 2, image 83). Miscellaneous: No inguinal hernias are seen. Bones: Unremarkable. IMPRESSION: 1. Prior hysterectomy, without evidence of metastatic disease or ayala disease. The previously described retroperitoneal nodularity is likely correspond to the ovarian veins. 2. Moderate hiatal hernia with distal esophageal wall thickening, suggestive of esophagitis. Dictated by: Willie Islas M.D. on 02/01/2023 at 16:33 Approved by: Willie Islas M.D. on 02/01/2023 at 16:43
[2023-02-01 12:15] LABS: Add Manual Diff / Slide Review NO; Basophils Absolute Auto 0 /uL (0-100); Basophils Percent Auto 0.7 % (0-2); Eosinophils Absolute Auto 200 /uL (0-450); Eosinophils Percent Auto 2.8 % (2-4); Hematocrit 38.7 % (36-46); Hemoglobin 13.3 g/dL (12.0-16.0); Lymphocytes Absolute Auto 1200 /uL (1100-4500); Lymphocytes Percent Auto 21.6 % (25-40); Mean Corpuscular HGB Conc 34.4 % (30-36); Mean Corpuscular Hemoglobin 29.5 PG (26-34); Mean Corpuscular Volume 85.6 fL (80-100); Monocytes Absolute Auto 500 /uL (0-900); Neutrophils Absolute Auto 3800 /uL (1500-7000); Neutrophils Percent Auto 65.9 % (50-75); Platelet Count 214 X10^3/uL (150-400); Red Blood Cell Count 4.52 X10^6/uL (4.0-5.2); Red Cell Distribution Width 13.4 % (11.6-14.8); White Blood Cell Count 5.8 X10^3/uL (4.5-11.0)
[2023-02-01 12:33] LABS: Alanine Aminotransferase 27 IU/L (<35); Albumin 4.3 g/dL (3.5-5.0); Albumin Globulin Ratio 1.5 (1.0-2.8); Alkaline Phosphatase 47 U/L (38-126); Aspartate Aminotransferase 25 IU/L (14-36); BUN Creatinine Ratio 26.7 (6-22); Bilirubin Total 0.6 mg/dL (0.2-1.3); Blood Urea Nitrogen 16 mg/dL (7-17); Calcium 8.5 mg/dL (8.4-10.2); Carbon Dioxide 29 mmol/L (22-32); Chloride 103 mmol/L (98-107); Estimated Glomerular Filt Rate > 60 mL/min (>60); Globulin 2.8 g/dL (1.7-4.1); Glucose 90 mg/dL (80-110); Potassium 4.3 mmol/L (3.4-5.1); Sodium 138 mmol/L (137-145); Total Protein 7.1 g/dL (6.3-8.2)
[2023-02-01 12:40] LABS: HEMOLYSIS 57 (0-50)
[2023-02-01 13:03] LABS: Cancer Antigen 125 < 5.5 U/mL (0-35)
== END ==
PROVIDERS: PCP Internal Medicine; Referring Provider Internal Medicine Medical Oncology; Visit Provider Internal Medicine Medical Oncology
DX: C54.1 Malignant neoplasm of endometrium (principal); R91.8 Other nonspecific abnormal finding of lung field; K44.9 Diaphragmatic hernia without obstruction or gangrene; Z90.710 Acquired absence of both cervix and uterus; Z90.722 Acquired absence of ovaries, bilateral
CPT/HCPCS: 36415; 71260; 74177; 80053; 85025; 86304; Q9967

== ENCOUNTER → 2023-11-29 14:54 | Outpatient (CLI) | payer MEDICARE, OTHER, SELFPAY ==
[2022-07-19 10:22] VITALS: BMI 45.8
--- NOTE | 2023-11-29 14:57 | DI.MG.S_ITS ---
BILATERAL DIGITAL SCREENING MAMMOGRAM 3D/2D WITH CAD: 11/29/2023 CLINICAL: Routine screening. Comparison is made to exams dated: 03/23/2022 mammogram - [facility], 11/21/2020 mammogram, and 04/13/2019 mammogram - [facility]. There are scattered areas of fibroglandular density in both breasts (category b / 25%-50% glandular tissue). Current study was also evaluated with a Computer Aided Detection (CAD) system. No significant masses, calcifications, or other findings are seen in either breast. There has been no significant interval change. IMPRESSION: NEGATIVE There is no mammographic evidence of malignancy. A 1 year screening mammogram is recommended. Based on the Tyrer Cuzick model (a risk assessment model) the patient's lifetime risk is 4.7% and her 10 year risk is 3.2%. According to the ACR, ACS, and NCCN guidelines, an annual breast MRI exam along with mammogram is recommended if the patient's lifetime risk is 20% or greater. This exam was interpreted at Station ID: [id number]. NOTE: For mammograms, a report in lay terms will be sent to the patient. Approximately 15% of breast malignancies will not be visualized mammographically. In the management of a palpable breast mass, a negative mammogram must not discourage biopsy of a clinically suspicious lesion. Electronically Signed By: Michael [email or web address]/[email or web address]:11/30/2023 07:09:09 letter sent: Normal Exam ACR BI-RADS Category 1: Negative [id number]
== END ==
PROVIDERS: PCP Internal Medicine; Referring Provider Internal Medicine; Visit Provider Internal Medicine
DX: Z12.31 Encounter for screening mammogram for malignant neoplasm of breast (principal); R92.323 Mammographic fibroglandular density, bilateral breasts
CPT/HCPCS: 77063; 77067